=== PATIENT | male | born 1930 | race Caucasian/White ===

== ENCOUNTER 2016-07-01 15:51 | Inpatient (IN) | payer MEDICARE, BC ==
[2016-07-01] VITALS (11 sets, daily range): BP systolic 110–141; BP diastolic 52–66; PULSE 75–88; RESP 16–17; TEMP 98.6; O2SAT 95–97
[~2016-07-01] VITALS: Ht 177.8 cm; Wt 91.1 kg
[~2016-07-01 15:51] MED LIST: ECASA PO; FINA5TAB77 PO; LASI20TA PO; LEXA10TA PO; LISI-357 PO; LORA2TAB PO; OMPR20CCR PO; PAXI20TA26 PO; PLAV75TA PO; POTA-243 PO; SIMV40 PO; TAMS0.4C67 PO; ULTR50TA PO; VITA-83 PO
[2016-07-01] MEDS ORDERED: SODIUM CHLOR 0.9% 1000 ML INJ 1,000 ML IV SCH (16:01)
[2016-07-01] MEDS ORDERED: LEXA10TA PO (16:05)
[2016-07-01] MEDS ORDERED: PARO1TAB72 PO (16:05)
[2016-07-01] MEDS ORDERED: ASPI325T PO (16:05)
[2016-07-01] MEDS ORDERED: FURO1TAB62 PO (16:05)
[2016-07-01] MEDS ORDERED: ASCO500C PO (16:05)
[2016-07-01] MEDS ORDERED: TRAM50TA PO (16:05)
[2016-07-01] MEDS ORDERED: LISI-519 PO (16:05)
[2016-07-01] MEDS ORDERED: POTA-243 PO (16:05)
[2016-07-01] MEDS ORDERED: FINA5TAB2 PO (16:05)
[2016-07-01] MEDS ORDERED: PLAV75TA29 PO (16:05)
[2016-07-01] MEDS ORDERED: LORA2TAB7 PO (16:05)
[2016-07-01] MEDS ORDERED: PRIL20CA9 PO (16:05)
[2016-07-01] MEDS ORDERED: TAMS5CAP PO (16:05)
[2016-07-01] MEDS ORDERED: SIMV40TA PO (16:05)
[2016-07-01] MEDS ORDERED: SODIUM CHLORIDE 0.9% FLUSH 5 ML FLUSH IVF PRN (16:15)
[2016-07-01] MEDS ORDERED: PANTOPRAZOLE INJ 80 MG in SODIUM CHLORIDE 0.9% INJ 35 ML IV ONE (16:15)
[2016-07-01 16:30] LABS: AUTOMATED NEUTROPHIL # 8.8 TH/MM3 (1.8-7.7); BASOPHIL % 0.1 % (0.0-2.0); EOSINOPHIL # 0.1 TH/MM3 (0-0.4); EOSINOPHIL % 0.8 % (0.0-4.0); HEMATOCRIT 29.4 % (39.0-51.0); LYMPH % 7.1 % (9.0-44.0); LYMPHOCYTE # 0.8 TH/MM3 (1.0-4.8); MEAN CELL VOLUME 79.8 FL (80.0-100.0); MEAN CORPUSCULAR HEMOGLOBIN 26.4 PG (27.0-34.0); MEAN CORPUSCULAR HGB CONC 33.1 % (32.0-36.0); PLATELET COUNT 293 TH/MM3 (150-450); RED BLOOD COUNT 3.68 MIL/MM3 (4.50-5.90); RED CELL DISTRIBUTION WIDTH 18.4 % (11.6-17.2); WHITE BLOOD COUNT 10.7 TH/MM3 (4.0-11.0)
[2016-07-01 16:32] LABS: HEMO FLAGS AUTO DIFF
[2016-07-01] MEDS: PANTOPRAZOLE INJ 80 MG in SODIUM CHLORIDE 0.9% INJ 100 ML IV SCH (16:43)
[2016-07-01 16:57] LABS: ANION GAP 7 MEQ/L (5-15); AST (GOT) 13 U/L (15-37); BICARBONATE 24.2 MEQ/L (21.0-32.0); BLOOD UREA NITROGEN 30 MG/DL (7-18); CHLORIDE 111 MEQ/L (98-107); GLOMERULAR FILTRATION RATE 68 ML/MIN (>89); POTASSIUM 4.3 MEQ/L (3.5-5.1); SODIUM (NA) 142 MEQ/L (136-145)
[2016-07-01 17:01] LABS: ALKALINE PHOSPHATASE 54 U/L (45-117); ALT (GPT) 13 U/L (12-78); TOTAL BILIRUBIN ADULT 0.5 MG/DL (0.2-1.0)
[2016-07-01 17:07] LABS: INTERNATIONAL NORMALIZED RATIO 1.1 RATIO; PROTHROMBIN TIME - PATIENT 12.5 SEC (9.8-11.6)
[2016-07-01 17:19] LABS: BANDS 12 % (0-6); NEUTROPHIL # MANUAL DIFF 8.3 TH/MM3 (1.8-7.7); POLYS (SEG NEUTROPHILS) 66 % (16-70); WBC DIFF SAMPLE 100
[2016-07-01 17:20] LABS: CRENATED RBCS 1+ (NORMAL); PLATELET ESTIMATE SMEAR NORMAL (NORMAL); PLATELET MORPHOLOGY NORMAL (NORMAL); SCAN/DIFF FINAL DIFF MANUAL
--- NOTE | 2016-07-01 17:37 | PD ---
HPI Chief Complaint: GI Complaint Time Seen by Provider: 15:59 Travel History International Travel<30 days: No Contact w/Intl Traveler<30days: No Traveled to known affect area: No History of Present Illness HPI Patient is a 86 year old male who comes in after having a bloody bowel movement today. He says he went to the bathroom and noticed all blood in the toilet. Afterwards he felt very weak as if he might pass out, so his called . He continued to bleed on the way to the hospital. Per EMS, he had a blood pressure of 80/40, but this improved with IVF. Patient was taking Aspirin and Plavix, but reports recently being taken off of these. He says this has never happened before. He denies any abdominal pain. He denies chest pain or SOB. Currently he is feeling better and does not feel dizzy. PFSH Past Medical History Hx Anticoagulant Therapy: Yes (81 MG. ASA DAILY) Anxiety: Yes Depression: Yes Heart Rhythm Problems: Yes Cancer: No Cardiac Catheterization: Yes Cardiovascular Problems: Yes (SD, CAD, CABG, SSS, HYPERLIPIDEMIA, HEART BLOCK) High Cholesterol: Yes Chest Pain: Yes Congestive Heart Failure: Yes Cerebrovascular Accident: Yes (TIA X2) Coronary Artery Disease: Yes Diabetes: No Diminished Hearing: No Endocrine: No Gastrointestinal Disorders: No Glaucoma: No Genitourinary: Yes Hepatitis: No Hiatal Hernia: No Hypertension: Yes Immune Disorder: No Implanted Vascular Access Dvce: Yes (PACEMAKER) Kidney Stones: Yes Musculoskeletal: Yes (CARPAL TUNNEL) Neurologic: Yes Psychiatric: Yes Reproductive: No Respiratory: No Integumentary: Yes (GANGLION L WRIST) Seizures: Yes Thyroid Disease: No Tetanus Vaccination: < 5 Years Influenza Vaccination: Yes ?: Not Past Surgical History Abdominal Surgery: Yes AICD: No Appendectomy: Yes Arteriovenous Shunt: No Cardiac Surgery: Yes (PACEMAKER, QUADRUPAL BYPASS) Coronary Artery Bypass Graft: Yes (X 4) Ear Surgery: No Endocrine Surgery: No Eye Surgery: Yes (ERLIN. CATARACT EXTRACT.) Genitourinary Surgery: Yes Insulin Pump: No Joint Replacement: No Neurologic Surgery: Yes Oral Surgery: No Pacemaker: Yes (BIOTRONIK) Thoracic Surgery: No Other Surgery: Yes (hemriodectomy and ganglion cyst removal) Social History Alcohol Use: Yes (OCCASIONALLY) Tobacco Use: No Substance Use: No Allergies-Medications (Allergen,Severity, Reaction): Coded Allergies: Advil (Verified Allergy, Severe, 07/01/16) Tramadol (Verified Adverse Reaction, Severe, Seizures, 07/01/16) Reported Meds & Prescriptions Reported Meds & Active Scripts Active Reported Plavix (Clopidogrel Bisulfate) 75 Mg Tab Unknown Dose PO DAILY Paroxetine (Paroxetine HCl) 20 Mg Tab 20 Mg PO DAILY Flomax (Tamsulosin HCl) 0.4 Mg Cap 0.4 Mg PO HS Tramadol (Tramadol HCl) 50 Mg Tab 50 Mg PO DAILY PRN Lisinopril 5 Mg Tab 5 Mg PO DAILY Lexapro (Escitalopram Oxalate) 10 Mg Tab 10 Mg PO DAILY Aspirin 325 Mg Tab 325 Mg PO DAILY Lorazepam 2 Mg Tab 2 Mg PO HS PRN Simvastatin 40 Mg Tab 40 Mg PO HS Vitamin C (Ascorbic Acid) 500 Mg Cap 500 Mg PO BID Finasteride 5 Mg Tab 5 Mg PO DAILY Do not crush. Klor-Con 10 (Potassium Chloride) 10 Meq Tab 20 Meq PO DAILY Lasix (Furosemide) 20 Mg Tab 0.5 Tab PO DAILY Prilosec (Omeprazole) 20 Mg Cap 20 Mg PO DAILY Review of Systems Except as stated in HPI: all other systems reviewed are Neg General / Constitutional: No: Fever, Chills Eyes: No: Blurred Vision HENT: No: Headaches Cardiovascular: No: Chest Pain or Discomfort Respiratory: No: Shortness of Breath Gastrointestinal: Positive: Hematochezia, No: Nausea, Vomiting Genitourinary: No: Dysuria Musculoskeletal: No: Myalgias Skin: No Rash, No Change in Pigmentation Physical Exam Narrative GENERAL: Awake and alert, in no acute distress. SKIN: Warm and dry. Pale appearing. HEAD: Atraumatic. Normocephalic. EYES: Pupils equal and round. No scleral icterus. Conjunctival pallor. ENT: Mucous membranes pink and moist. NECK: Trachea midline. No JVD. CARDIOVASCULAR: Regular rate and rhythm. No murmur appreciated. RESPIRATORY: No accessory muscle use. Clear to auscultation. Breath sounds equal bilaterally. GASTROINTESTINAL: Abdomen soft, non-tender, nondistended. RECTAL: BRBPR MUSCULOSKELETAL: No obvious deformities. No clubbing. No cyanosis. No edema. NEUROLOGICAL: Awake and alert. No obvious cranial nerve deficits. Motor grossly within normal limits. Normal speech. PSYCHIATRIC: Appropriate mood and affect; insight and judgment normal. Data Data Last Documented VS Vital Signs Date Time Temp Pulse Resp B/P Pulse Ox O2 Delivery O2 Flow Rate FiO2 07/01/16 17:30 86 16 140/63 96 Room Air 07/01/16 15:53 98.6 Orders Complete Blood Count With Diff (07/01/16 16:01) Comprehensive Metabolic Panel (07/01/16 16:01) Lipase (07/01/16 16:01) Prothrombin Time / Inr (Pt) (07/01/16 16:01) Act Partial Throm Time (Ptt) (07/01/16 16:01) Type And Screen (07/01/16 16:01) Red Blood Cells (Rbc) (07/01/16 16:01) Ecg Monitoring (07/01/16 16:01) Iv Access Insert/Monitor (07/01/16 16:01) Oximetry (07/01/16 16:01) Sodium Chlor 0.9% 1000 Ml Inj (Ns 1000 M (07/01/16 16:01) Sodium Chloride 0.9% Flush (Ns Flush) (07/01/16 16:15) Pantoprazole Inj (Protonix Inj) (07/01/16 16:15) Pantoprazole Inj (Protonix Inj) (07/01/16 16:15) Ct Abd/Pel W Iv Contrast(Rout) (07/01/16 ) Admit Order (Ed Use Only) (07/01/16 ) Labs Laboratory Tests Test 07/01/16 16:16 White Blood Count 10.7 TH/MM3 Red Blood Count 3.68 MIL/MM3 Hemoglobin 9.7 GM/DL Hematocrit 29.4 % Mean Corpuscular Volume 79.8 FL Mean Corpuscular Hemoglobin 26.4 PG Mean Corpuscular Hemoglobin 33.1 % Concent Red Cell Distribution Width 18.4 % Platelet Count 293 TH/MM3 Mean Platelet Volume 8.4 FL Neutrophils (%) (Auto) 82.0 % Lymphocytes (%) (Auto) 7.1 % Monocytes (%) (Auto) 10.0 % Eosinophils (%) (Auto) 0.8 % Basophils (%) (Auto) 0.1 % Neutrophils # (Auto) 8.8 TH/MM3 Lymphocytes # (Auto) 0.8 TH/MM3 Monocytes # (Auto) 1.1 TH/MM3 Eosinophils # (Auto) 0.1 TH/MM3 Basophils # (Auto) 0.0 TH/MM3 CBC Comment AUTO DIFF Differential Total Cells 100 Counted Neutrophils % (Manual) 66 % Band Neutrophils % 12 % Lymphocytes % 9 % Monocytes % 13 % Neutrophils # (Manual) 8.3 TH/MM3 Differential Comment FINAL DIFF MANUAL Platelet Estimate NORMAL Platelet Morphology Comment NORMAL Crenated Cell 1+ Prothrombin Time 12.5 SEC Prothromb Time International 1.1 RATIO Ratio Activated Partial 32.0 SEC Thromboplast Time Sodium Level 142 MEQ/L Potassium Level 4.3 MEQ/L Chloride Level 111 MEQ/L Carbon Dioxide Level 24.2 MEQ/L Anion Gap 7 MEQ/L Blood Urea Nitrogen 30 MG/DL Creatinine 1.04 MG/DL Estimat Glomerular Filtration 68 ML/MIN Rate Random Glucose 120 MG/DL Calcium Level 7.5 MG/DL Total Bilirubin 0.5 MG/DL Aspartate Amino Transf 13 U/L (AST/SGOT) Alanine Aminotransferase 13 U/L (ALT/SGPT) Alkaline Phosphatase 54 U/L Total Protein 5.7 GM/DL Albumin 2.6 GM/DL Lipase 78 U/L Blood Type A POSITIVE Antibody Screen NEGATIVE Crossmatch Leukocyte-Reduced Red Blood Cells Blood Bank Comment MDM Medical Decision Making Medical Screen Exam Complete: Yes Emergency Medical Condition: Yes Medical Record Reviewed: Yes Differential Diagnosis Diverticulosis versus AVM versus ulcer Narrative Course Patient is an 86-year-old male comes in after having a bloody bowel movement. Exam shows some conjunctival pallor. IV established, labs sent. Patient given IV fluids. Blood ordered in case he continues to bleed and requires a transfusion. Started on Protonix. Hemoglobin currently is 9.7. Blood held. Patient had no further bleeding in the emergency department. Dr. Ordaz consulted for GI. He says he will scope the patient tomorrow. Patient admitted for further management. Diagnosis Primary Impression: Lower gastrointestinal bleed Admitting Information Admitting Physician Requests: Admit Shaista Ko MD Jul 01, 2016 17:37
[2016-07-01] MEDS ORDERED: IOHEXOL 350 MG/ML 10 ML VIAL (for RAD DIAG) IV ONE (17:52)
--- NOTE | 2016-07-01 18:03 | RADRPT ---
EXAM DATE/TIME: 07/01/2016 17:36 [facility] COMPARISON: No previous studies available for comparison. INDICATIONS : Abdomen pain, rectal bleeding. IV CONTRAST: 99 cc Omnipaque 350 (iohexol) IV ORAL CONTRAST: No oral contrast ingested. RADIATION DOSE: 12.22 CTDIvol (mGy) MEDICAL HISTORY : Cardiovascular disease. Renal calculi. SURGICAL HISTORY : CABG Pacemaker. ENCOUNTER: Initial ACUITY: 1 day PAIN SCALE: 5/10 LOCATION: Abdomen TECHNIQUE: Volumetric scanning of the abdomen and pelvis was performed. Using automated exposure control and ad justment of the mA and/or kV according to patient size, radiation dose was kept as low as reasonably achievable to obtain optimal diagnostic quality images. FINDINGS: LOWER LUNGS: The visualized lower lungs are clear. LIVER: Homogeneous density without lesion. There is no dilation of the biliary tree. No calcified gallston es. SPLEEN: Normal size without lesion. PANCREAS: Within normal limits. KIDNEYS: Normal in size and shape. There is no mass, stone or hydronephrosis. ADRENAL GLANDS: Within normal limits. VASCULAR: There is no aortic aneurysm. Extensive atherosclerotic changes. BOWEL/MESENTERY: Scattered diverticulosis. There is no free intraperitoneal air or fluid. Christine mesentery with small l ymph nodes. ABDOMINAL WALL: Within normal limits. RETROPERITONEUM: There is no lymphadenopathy. BLADDER: No wall thickening or mass. REPRODUCTIVE: Within normal limits. INGUINAL: There is no lymphadenopathy or hernia. MUSCULOSKELETAL: Degenerative changes lumbar spine. CONCLUSION: 1. Diverticulosis without diverticulitis. Ar Vizcaino MD on July 01, 2016 at 18:00 Board Certified Radiologist. This report was verified electronically.
--- NOTE | 2016-07-01 18:10 | HHI.HP ---
[facility] Service Family Medicine Primary Care Physician Philly (Jaime) MD Jose Admission Diagnosis GI bleed Diagnoses: International Travel<30 Days: No Contact w/Intl Traveler<30days: No Known Affected Area: No History of Present Illness 86-year-old male with history of bright red bleeding per rectum since this morning. Patient is present with his . He states for the past 2-3 days he has had "explosive diarrhea." He is not sure how many times he has gone to the bathroom in the last 2-3 days. The bright red bleeding first occurred this morning. He "passed a lot of blood which created a puddle on the floor." He called his primary care physician Dr. Garcia who recommended he come to the emergency room with any more episodes of bleeding. Shortly after, he fainted and there was "a gush of blood"per rectum. That is when his called 911. Patient was interviewed with prevention coordinator in the room. CT exam showed diverticulosis. His last colonoscopy was 10 years ago. He took his medications this morning including Plavix and aspirin which he takes for coronary artery disease. (Lavon Brennan MD R2) Review of Systems Constitutional: DENIES: Fever, Chills Eyes: DENIES: Blurred vision, Diplopia Respiratory: DENIES: Cough, Shortness of breath Cardiovascular: COMPLAINS OF: Syncope, DENIES: Chest pain, Palpitations Gastrointestinal: COMPLAINS OF: Bloody stools, Diarrhea, DENIES: Abdominal pain, Black stools, Constipation, Nausea, Vomiting Neurologic: DENIES: Abnormal gait, Headache Psychiatric: DENIES: Anxiety, Confusion (Lavon Brennan MD R2) Past Family Social History Past Medical History Coronary artery disease status post CABG 2010 Hypertension Anxiety depression Hyperlipidemia BPH Past Surgical History CABG 2010 Reported Medications Reported Meds & Active Scripts Active Reported Plavix (Clopidogrel Bisulfate) 75 Mg Tab Unknown Dose PO DAILY Paroxetine (Paroxetine HCl) 20 Mg Tab 20 Mg PO DAILY Flomax (Tamsulosin HCl) 0.4 Mg Cap 0.4 Mg PO HS Tramadol (Tramadol HCl) 50 Mg Tab 50 Mg PO DAILY PRN Lisinopril 5 Mg Tab 5 Mg PO DAILY Lexapro (Escitalopram Oxalate) 10 Mg Tab 10 Mg PO DAILY Aspirin 325 Mg Tab 325 Mg PO DAILY Lorazepam 2 Mg Tab 2 Mg PO HS PRN Simvastatin 40 Mg Tab 40 Mg PO HS Vitamin C (Ascorbic Acid) 500 Mg Cap 500 Mg PO BID Finasteride 5 Mg Tab 5 Mg PO DAILY Do not crush. Klor-Con 10 (Potassium Chloride) 10 Meq Tab 20 Meq PO DAILY Lasix (Furosemide) 20 Mg Tab 0.5 Tab PO DAILY (he's not sure why he takes this) Prilosec (Omeprazole) 20 Mg Cap 20 Mg PO DAILY (Lavon Brennan MD R2) Allergies: Coded Allergies: Advil (Verified Allergy, Severe, 07/01/16) Tramadol (Verified Adverse Reaction, Severe, Seizures, 07/01/16) Active Ordered Medications Active Medications Iohexol (Omnipaque 350 Inj) 99 ml STK-MED ONCE IV Last administered on 17:52; Admin Dose 99 ML; Start 07/01/16 at 17:52; Stop 07/01/16 at 17:53; Status DC IV Flush 2 ml 2 ml UNSCH PRN IVF; Start 07/01/16 at 16:15 Pantoprazole Sodium 80 mg/ Sodium Chloride 35 ml @ 420 mls/hr ONCE ONCE IV Last administered on 07/01/16 16:43; Admin Dose 420 MLS/HR; Start 07/01/16 at 16:15; Stop 07/01/16 at 16:19; Status DC Pantoprazole Sodium/Sodium Chloride (Protonix Inj/NS Inj) 100 ml @ 10 mls/hr Q10H IV Last administered on 07/01/16 16:43; Admin Dose 10 MLS/HR; Start at 16:15 Sodium Chloride (NS 1000 ml Inj) 1,000 ml @ 1,000 mls/hr Q1H IV Last administered on 07/01/16 16:28; Admin Dose 1,000 MLS/HR; Start 07/01/16 at 16: 01; Stop 07/01/16 at 17:00; Status DC Family History No history of cancer. No history of DM Social History Patient denies using tobacco, alcohol or illicit drugs. He quit smoking about 44 years ago; 1 PPD from [age] years old (Lavon Brennan MD R2) Physical Exam Vital Signs Vital Signs Date Time Temp Pulse Resp B/P Pulse Ox O2 Delivery O2 Flow Rate FiO2 07/01/16 18:07 88 16 140/64 97 Room Air 07/01/16 17:30 86 16 140/63 96 Room Air 07/01/16 17:00 88 17 110/54 96 Room Air 07/01/16 16:40 96 Room Air 07/01/16 16:30 84 16 118/59 96 Room Air 07/01/16 16:00 80 16 112/57 96 Room Air 07/01/16 15:59 16 07/01/16 15:53 98.6 86 17 110/52 96 Physical Exam GENERAL: This is a well-nourished, well-developed patient, in no apparent distress. SKIN: No rashes, ecchymoses or lesions. Cool and dry. Pale appearing HEAD: Atraumatic. Normocephalic. No temporal or scalp tenderness. EYES: Pupils equal round and reactive. Extraocular motions intact. No scleral icterus. No injection or drainage. ENT: Nose without bleeding, purulent drainage or septal hematoma. Throat without erythema, tonsillar hypertrophy or exudate. Uvula midline. Airway patent. NECK: Trachea midline. No JVD or lymphadenopathy. Supple, nontender, no meningeal signs. CARDIOVASCULAR: Regular rate and rhythm without murmurs, gallops, or rubs. RESPIRATORY: Clear to auscultation. Breath sounds equal bilaterally. No wheezes , rales, or rhonchi. GASTROINTESTINAL: Abdomen soft, non-tender, nondistended. No hepato-splenomegaly , or palpable masses. No guarding. One episode of Bright red bleeding observed per rectum while in the patient's room. MUSCULOSKELETAL: Extremities without clubbing, cyanosis, or edema. No joint tenderness, effusion, or edema noted. No calf tenderness. Negative Homans sign bilaterally. NEUROLOGICAL: Awake and alert. Cranial nerves II through XII intact. Motor and sensory grossly within normal limits. Five out of 5 muscle strength in all muscle groups. Normal speech. Laboratory Laboratory Tests Test 07/01/16 16:16 White Blood Count 10.7 Red Blood Count 3.68 Hemoglobin 9.7 Hematocrit 29.4 Mean Corpuscular Volume 79.8 Mean Corpuscular Hemoglobin 26.4 Mean Corpuscular Hemoglobin 33.1 Concent Red Cell Distribution Width 18.4 Platelet Count 293 Mean Platelet Volume 8.4 Neutrophils (%) (Auto) 82.0 Lymphocytes (%) (Auto) 7.1 Monocytes (%) (Auto) 10.0 Eosinophils (%) (Auto) 0.8 Basophils (%) (Auto) 0.1 Neutrophils # (Auto) 8.8 Lymphocytes # (Auto) 0.8 Monocytes # (Auto) 1.1 Eosinophils # (Auto) 0.1 Basophils # (Auto) 0.0 CBC Comment AUTO DIFF Differential Total Cells 100 Counted Neutrophils % (Manual) 66 Band Neutrophils % 12 Lymphocytes % 9 Monocytes % 13 Neutrophils # (Manual) 8.3 Differential Comment FINAL DIFF MANUAL Platelet Estimate NORMAL Platelet Morphology Comment NORMAL Crenated Cell 1+ Prothrombin Time 12.5 Prothromb Time International 1.1 Ratio Activated Partial 32.0 Thromboplast Time Sodium Level 142 Potassium Level 4.3 Chloride Level 111 Carbon Dioxide Level 24.2 Anion Gap 7 Blood Urea Nitrogen 30 Creatinine 1.04 Estimat Glomerular Filtration 68 Rate Random Glucose 120 Calcium Level 7.5 Total Bilirubin 0.5 Aspartate Amino Transf 13 (AST/SGOT) Alanine Aminotransferase 13 (ALT/SGPT) Alkaline Phosphatase 54 Total Protein 5.7 Albumin 2.6 Lipase 78 Blood Type A POSITIVE Antibody Screen NEGATIVE Crossmatch Leukocyte-Reduced Red Blood Cells Blood Bank Comment (Lavon Brennan MD R2) Result Diagram: 07/01/16 1616 07/01/16 1616 Imaging Last Impressions Abdomen/Pelvis CT 07/01/16 0000 Signed Impressions: Service Date/Time: Friday, July 01, 2016 17:36 - CONCLUSION: 1. Diverticulosis without diverticulitis. Ar Vizcaino MD (Lavon Brennan MD R2) Assessment and Plan Assessment and Plan 86-year-old male with bright red blood per rectum. Patient will be admitted for gastroenterology consultation including colonoscopy/EGD. Code Status Full (Lavon Brennan MD R2) Attending Attestation The patient has been seen and examined. The chart and all resident notes have been reviewed. I agree that inpatient care is appropriate and that a two midnight stay is expected for the reasons documented in the resident history and physical. I have discussed this with the resident and certify the resident s order for inpatient admission. All systems reviewed and neg except as stated in HPI. (Carmen Gant MD) Problem List: (1) Lower gastrointestinal bleed Status: Acute Plan: Bright red blood per rectum. Vitals currently stable. Diverticulosis on CT scan. Gastroenterology consult Nothing by mouth at midnight for planned colonoscopy/EGD Serial hemoglobin and hematocrits every 6 hours Transfuse if hemoglobin less than 7 and/or active bleeding. Protonix drip Normal saline 140 mL's per hour nuclear medical technologist (2) FEN/PPX Status: Acute Plan: Fluids: Normal saline at 140 mL's per hour Electrolytes: Monitor and replace when necessary Nutrition: Currently liquid diet, nothing by mouth after midnight for colonoscopy and/or EGD Prophylaxis: Protonix IV; no anticoagulation given GI bleed. Chronic medical problems: Coronary artery disease: Holding aspirin and Plavix secondary to GI bleed; continue Lasix 20 mg by mouth daily Depression: Continue Lexapro and paroxetine High blood pressure: Continue lisinopril Anxiety: Continue lorazepam 2 mg by mouth at bedtime when necessary anxiety and/ or insomnia BPH: Continue Flomax and finasteride Chronic pain: Continue tramadol (Lavon Brennan MD R2) Physician Certification 2 Midnight Certification Type: Admission for Inpatient Services Order for Inpatient Services The services are ordered in accordance with Medicare regulations or non- Medicare payer requirements, as applicable. In the case of services not specified as inpatient-only, they are appropriately provided as inpatient services in accordance with the 2-midnight benchmark. Estimated LOS (days): 2 days is the estimated time the patient will need to remain in the hospital, assuming treatment plan goals are met and no additional complications. Post-Hospital Plan: Not yet determined (Lavon Brennan MD R2) Lavon Brennan MD R2 Jul 01, 2016 18:10 Carmen Gant MD Jul 02, 2016 14:37
[2016-07-01] MEDS ORDERED: PEG (High)/E-LYTE SOLN 4000 ML BTL PO ONE (18:30)
[2016-07-01] MEDS ORDERED: ONDANSETRON HCL 4 MG/2 ML VIAL IV PRN (18:45)
[2016-07-01] MEDS ORDERED: ACETAMINOPHEN 325 MG TAB PO PRN (18:45)
[2016-07-01] MEDS ORDERED: LORazepam 2 MG TAB PO PRN (19:00)
[2016-07-01] MEDS ORDERED: traMADol HCL 50 MG TAB PO PRN (19:00)
[2016-07-01] MEDS: SODIUM CHLOR 0.9% 1000 ML INJ 1,000 ML IV SCH ×2 (19:01→23:59)
[2016-07-01] MEDS: TAMSULOSIN HCL 0.4 MG CAP PO SCH (20:39)
[2016-07-01] MEDS: PRAVASTATIN SOD 80 MG TAB PO SCH (20:39)
--- NOTE | 2016-07-01 20:40 | EKG ---
Date Performed: 07/01/2016 Time Performed: 15:56:46 PTAGE: 86 years EKG: ELECTRONIC ATRIAL PACEMAKER ELECTRONIC VENTRICULAR PACEMAKER ABNORMAL RHYTHM ECG PREVIOUS TRACING : 01/18/2016 11.09 Compared to previous tracing, atrial pacing is now evident. DOCTOR: Amarjit Adan Interpretating Date/Time 07/01/2016 20:40:00
[2016-07-01] MEDS ORDERED: CHLORHEXIDINE GLUCONATE 2 % 1 PACK (2 CLOTHS)(extra cloths) TOP PRN (23:30)
[2016-07-02] VITALS (13 sets, daily range): BP systolic 130–163; BP diastolic 59–74; PULSE 81–88; RESP 10–20; TEMP 97.7–98.7; O2SAT 91–96
[2016-07-02] MEDS: CHLORHEXIDINE GLUCONATE 2 % 1 PACK (2 CLOTHS)(taper/protocol) TOP SCH
[2016-07-02 01:18] LABS: HEMATOCRIT 26.6 % (39.0-51.0); REVIEW FLAG FINAL
[2016-07-02] MEDS: SODIUM CHLOR 0.9% 1000 ML INJ 1,000 ML IV SCH ×3 (05:26→22:40)
[2016-07-02 07:43] LABS: AUTOMATED NEUTROPHIL # 8.9 TH/MM3 (1.8-7.7); BASOPHIL % 0.2 % (0.0-2.0); EOSINOPHIL # 0.1 TH/MM3 (0-0.4); HEMO FLAGS DIFF FINAL; LYMPH % 10.2 % (9.0-44.0); LYMPHOCYTE # 1.1 TH/MM3 (1.0-4.8); MEAN CELL VOLUME 81.3 FL (80.0-100.0); MEAN CORPUSCULAR HEMOGLOBIN 25.7 PG (27.0-34.0); MEAN CORPUSCULAR HGB CONC 31.6 % (32.0-36.0); MONO % 8.1 % (0.0-8.0); NEUT % 80.5 % (16.0-70.0); PLATELET COUNT 280 TH/MM3 (150-450); RED BLOOD COUNT 3.32 MIL/MM3 (4.50-5.90); RED CELL DISTRIBUTION WIDTH 18.8 % (11.6-17.2)
[2016-07-02 08:00] LABS: ALT (GPT) 11 U/L (12-78); ANION GAP 10 MEQ/L (5-15); AST (GOT) 10 U/L (15-37); BICARBONATE 20.3 MEQ/L (21.0-32.0); BLOOD UREA NITROGEN 22 MG/DL (7-18); CHLORIDE 114 MEQ/L (98-107); GLOMERULAR FILTRATION RATE 89 ML/MIN (>89); POTASSIUM 3.9 MEQ/L (3.5-5.1); SODIUM (NA) 144 MEQ/L (136-145)
[2016-07-02 08:03] LABS: ALKALINE PHOSPHATASE 52 U/L (45-117); TOTAL BILIRUBIN ADULT 0.4 MG/DL (0.2-1.0)
[2016-07-02] MEDS: LISINOPRIL 5 MG TAB PO SCH (08:20)
[2016-07-02] MEDS: PARoxetine HCL 20 MG TAB PO SCH (08:20)
[2016-07-02] MEDS: ESCITALOPRAM OXALATE 10 MG TAB PO SCH (08:20)
[2016-07-02] MEDS: FINASTERIDE 5 MG TAB PO SCH (08:20)
[2016-07-02] MEDS: POTASSIUM CHLORIDE 10 MEQ CONTROLLED RELEASE TAB PO SCH (08:20)
[2016-07-02] MEDS: FUROSEMIDE 20 MG TAB PO SCH ×2 (08:21→08:22)
[2016-07-02] MEDS: PANTOPRAZOLE INJ 80 MG in SODIUM CHLORIDE 0.9% INJ 100 ML IV SCH ×3 (10:28)
[2016-07-02 11:46] LABS: HEMATOCRIT 26.6 % (39.0-51.0); REVIEW FLAG FINAL
[2016-07-02] MEDS ORDERED: NS 500 ML (EXCEL BAG) 500 ML BAG IV ONE (12:19)
[2016-07-02] MEDS ORDERED: PROPOFOL 200 MG/20 ML AMP IV ONE (12:19)
[2016-07-02] MEDS ORDERED: DO NOT ADM ANY ANTICOAGULANT DRUGS XX PRN (12:36)
--- NOTE | 2016-07-02 14:23 | MB ---
cc: VILMA LEUNG DATE OF CONSULTATION: 07/02/2016. REASON FOR CONSULTATION: GI bleed. HISTORY OF PRESENT ILLNESS: Thank you for the consultation. This is an 86-year-old gentleman who came with bright red blood per rectum in the last 24 hours. He presented with his and stated that for the last two to three days he has had explosive diarrhea and bright red blood started in the morning. The patient denied any other problem. His primary care doctor, Dr. Garcia, recommended for him to come to the emergency room. CT scan showed diverticulosis. The patient had colonoscopy before but more than 10 years ago. He denies any other problem. He is on Plavix and aspirin. PAST MEDICAL HISTORY: Significant for: 1. Anxiety. 2. Depression. 3. Hypertension. 4. Coronary artery disease status post CABG. 5. Benign prostate hypertrophy. 6. Hyperlipidemia. MEDICATIONS: Reviewed in the chart. FAMILY HISTORY: Noncontributory. ALLERGIES: 1. ADVIL. 2. TRAMADOL. REVIEW OF SYSTEMS: All twelve-point negative except for the history of present illness. PHYSICAL EXAMINATION: GENERAL: Alert, oriented, in no acute distress. VITAL SIGNS: Vital signs are stable. HEAD, EYES, EARS, NOSE, THROAT: Pupils are round and reactive to light. NECK: The neck is supple. CHEST: Clear. CARDIAC: Regular rate and rhythm. ABDOMEN: Soft, nondistended. Positive bowel sounds. No hepatosplenomegaly. EXTREMITIES: No edema, clubbing or cyanosis. NEUROLOGIC: Neurologically intact. PSYCHIATRIC: Psychologically appropriate. LABORATORY DATA: White count 10.7, hemoglobin 8.6 down from 9.7 on admission, platelets 280,000. INR 1.1. Liver function tests are normal. Lipase normal. IMAGING STUDIES: Abdominal CT scan showed diverticulosis. No diverticulitis. ASSESSMENT AND PLAN: 86-year-old gentleman with rectal bleed and bright red blood per rectum. No melena but because of the sudden onset and the significant anemia, I recommend doing upper endoscopy and a colonoscopy. I had discussed with the patient the procedure and complications. This will be done today. The patient was prepped yesterday. Further plan depends on the findings. We will continue with packed RBC as needed. MD RUDOLPH Monique/VINICIO /1:38 PM /2:17 PM
--- NOTE | 2016-07-02 14:56 | HHI.FPPN ---
Subjective Subjective Patient seen and examined with the resident team. Case reviewed and discussed Please refer to resident H&P for further details regarding HPI, ROS, PMH, SurgHx , FH and SocHx In summary, patient is an 86yoM presenting for rectal bleeding. He reportedly noted BRBPR and had a syncopal episode at home prompting him to come in. Patient is seen this am in [facility]. Denies abdominal pain. Plan for colonoscopy today. [facility] Objective Objective Last Impressions Abdomen/Pelvis CT 07/01/16 0000 Signed Impressions: Service Date/Time: Friday, July 01, 2016 17:36 - CONCLUSION: 1. Diverticulosis without diverticulitis. Ar Vizcaino MD Laboratory Tests - Abnormals Test 07/01/16 07/02/16 07/02/16 07/02/16 16:16 00:55 05:45 10:54 Red Blood Count 3.68 MIL/MM3 3.32 MIL/MM3 Hemoglobin 9.7 GM/DL 8.7 GM/DL 8.5 GM/DL 8.6 GM/DL Hematocrit 29.4 % 26.6 % 27.0 % 26.6 % Mean Corpuscular Volume 79.8 FL Mean Corpuscular Hemoglobin 26.4 PG 25.7 PG Red Cell Distribution Width 18.4 % 18.8 % Neutrophils (%) (Auto) 82.0 % 80.5 % Lymphocytes (%) (Auto) 7.1 % Monocytes (%) (Auto) 10.0 % 8.1 % Neutrophils # (Auto) 8.8 TH/MM3 8.9 TH/MM3 Lymphocytes # (Auto) 0.8 TH/MM3 Monocytes # (Auto) 1.1 TH/MM3 Band Neutrophils % 12 % Monocytes % 13 % Neutrophils # (Manual) 8.3 TH/MM3 Crenated Cell 1+ Prothrombin Time 12.5 SEC Activated Partial 32.0 SEC Thromboplast Time Chloride Level 111 MEQ/L 114 MEQ/L Blood Urea Nitrogen 30 MG/DL 22 MG/DL Estimat Glomerular Filtration 68 ML/MIN Rate Random Glucose 120 MG/DL Calcium Level 7.5 MG/DL 7.7 MG/DL Aspartate Amino Transf 13 U/L 10 U/L (AST/SGOT) Total Protein 5.7 GM/DL 5.3 GM/DL Albumin 2.6 GM/DL 2.3 GM/DL Mean Corpuscular Hemoglobin 31.6 % Concent Carbon Dioxide Level 20.3 MEQ/L Alanine Aminotransferase 11 U/L (ALT/SGPT) Vital Signs 07/01/16 07/01/16 07/01/16 07/01/16 15:53 15:59 16:00 16:30 Temp 98.6 Pulse 86 80 84 Resp 17 16 16 16 B/P 110/52 112/57 118/59 Pulse Ox 96 96 96 O2 Delivery Room Air Room Air 07/01/16 07/01/16 07/01/16 07/01/16 16:40 17:00 17:30 18:07 Pulse 88 86 88 Resp 17 16 16 B/P 110/54 140/63 140/64 Pulse Ox 96 96 96 97 O2 Delivery Room Air Room Air Room Air Room Air 07/01/16 07/01/16 07/01/16 07/01/16 19:02 20:00 20:44 21:50 Pulse 86 81 88 75 Resp 16 17 16 B/P 128/58 141/66 135/63 141/66 Pulse Ox 95 96 96 96 O2 Delivery Room Air Room Air Room Air Room Air 07/02/16 07/02/16 07/02/16 07/02/16 00:00 02:00 04:00 04:00 Temp 97.7 98.0 Pulse 82 82 84 84 Resp 10 15 B/P 130/59 138/63 Pulse Ox 91 94 07/02/16 07/02/16 07/02/16 07/02/16 06:00 08:00 08:00 10:00 Temp 98.3 Pulse 83 83 83 85 Resp 16 B/P 148/67 Pulse Ox 95 07/02/16 07/02/16 07/02/16 07/02/16 10:52 12:00 12:00 14:00 Temp 98.7 Pulse 84 84 88 Resp 16 B/P 163/67 Pulse Ox 96 95 O2 Delivery Nasal Cannula O2 Flow Rate 2.00 INTAKE & OUTPUT 07/02/16 07:00 Intake Total 5228 ml Output Total 4125 ml Balance 1103 ml Physical exam GENERAL: Elderly male resting comfortably in bed. NAD. SKIN: Warm and dry. Multiple ecchymoses over extremities HEAD: Normocephalic. AT EYES: No scleral icterus. No injection or drainage. Mild conjunctival pallor ENT: OP clear. MMM. NC in place NECK: Supple, trachea midline. No JVD or lymphadenopathy. CARDIOVASCULAR: Regular rate and rhythm without murmurs, gallops, or rubs. RESPIRATORY: Breath sounds equal and clear to auscultation bilaterally. No accessory muscle use. GASTROINTESTINAL: Abdomen soft, non-tender, nondistended. Normal active BS. Rectal tube in place draining watery, bloody diarrhea MUSCULOSKELETAL: No cyanosis, or edema. NO calf tenderness BACK: Nontender without obvious deformity. No CVA tenderness. NEURO: Awake and alert. Oriented. MAEW. CN grossly intact. Assessment Assessment 86yoM admitted with: GIB, suspect secondary to diverticulosis Acute blood loss anemia Hx CAD s/p CABG, follows with cardiology Dr. Bray Anxiety/Depression HTN HL PLAN PLAN Protonix GI consultation Hold asa, plavix Transfuse as needed serial Hgb Resume home meds as appropriate 2D echo SCDs Monitor intake/output Light IVF while NPO Patient seen and examined with the resident team. Case reviewed and discussed Agree with plan of care as discussed with me and documented in the resident note. Carmen Gant MD Jul 02, 2016 14:55
[2016-07-02] MEDS ORDERED: LORazepam 1 MG TAB PO PRN (15:00)
[2016-07-02 16:46] LABS: HEMATOCRIT 27.8 % (39.0-51.0); REVIEW FLAG FINAL
--- NOTE | 2016-07-02 20:45 | MR ---
cc: VILMA LEUNG DATE 07/02/16 PROCEDURE Upper gastrointestinal endoscopy and colonoscopy with biopsy. INDICATION An 86-year-old gentleman who has rectal bleeding and anemia. PROCEDURE After informing the patient about procedure and complications, consent was signed. The patient was placed on his left lateral decubitus. Adequate sedation was achieved by propofol. The scope was placed in the mouth, advanced under video guidance to the second portion of the duodenum. The scope drawn back to the stomach. Retroflexion was performed. Then the scope drawn back without immediate complication. After that rectal exam was performed. The scope was placed in the rectum, advanced under video guidance to the cecum which was identified by the ileocecal valve and appendiceal orifice. Terminal ileum was intubated, there was some erythema in the ileocecal valve and terminal ileum biopsy was done. Then the scope drawn back to the rectum. Retroflexion was performed, then the scope drawn back without immediate complication. FINDINGS 1. Normal upper endoscopy including esophagus, stomach and duodenum. 2. In the colon some erythema in the ileocecal valve and terminal ileum, biopsy was done. There was no sign of active bleeding. 3. Diverticulosis mostly on the left side. This could be the reason for the bleeding. 4. Small hemorrhoid. 5. No active bleeding at this time. RECOMMENDATIONS 1. May feed patient. 2. Will follow up CBC. 3. Follow-up biopsy. 4. After I went and talked to the family they told me that they were concerned about the patient's diarrhea, that he has explosive every day and at the same time they said that he is very concerned about having bowel movement every day and that he takes laxative and prune juice all the time and they would like him to have a psychological evaluation. I told them this needs to be discussed with the primary team and we will see what the biopsy shows. MD RUDOLPH Monique/BORIS /1:42 PM /8:38 PM
[2016-07-02] MEDS: PRAVASTATIN SOD 80 MG TAB PO SCH (21:00)
[2016-07-02] MEDS: TAMSULOSIN HCL 0.4 MG CAP PO SCH (21:00)
[2016-07-02] MEDS ORDERED: cloNIDine HCL 0.1 MG TAB PO PRN (22:00)
[2016-07-02 22:41] LABS: REVIEW FLAG FINAL
[2016-07-03] VITALS (8 sets, daily range): BP systolic 149–161; BP diastolic 70–75; PULSE 81–87; RESP 20–24; TEMP 98–98.5; O2SAT 92–96
[2016-07-03 03:04] LABS: AUTOMATED NEUTROPHIL # 4.6 TH/MM3 (1.8-7.7); BASOPHIL % 0.2 % (0.0-2.0); EOSINOPHIL # 0.1 TH/MM3 (0-0.4); EOSINOPHIL % 2.3 % (0.0-4.0); HEMATOCRIT 24.4 % (39.0-51.0); LYMPH % 18.2 % (9.0-44.0); LYMPHOCYTE # 1.2 TH/MM3 (1.0-4.8); MEAN CELL VOLUME 80.1 FL (80.0-100.0); MEAN CORPUSCULAR HEMOGLOBIN 25.8 PG (27.0-34.0); MEAN CORPUSCULAR HGB CONC 32.2 % (32.0-36.0); NEUT % 70.3 % (16.0-70.0); PLATELET COUNT 255 TH/MM3 (150-450); RED BLOOD COUNT 3.05 MIL/MM3 (4.50-5.90); RED CELL DISTRIBUTION WIDTH 18.1 % (11.6-17.2); WHITE BLOOD COUNT 6.6 TH/MM3 (4.0-11.0)
[2016-07-03 03:08] LABS: HEMO FLAGS AUTO DIFF
[2016-07-03 03:17] LABS: ALT (GPT) 11 U/L (12-78); ANION GAP 7 MEQ/L (5-15); AST (GOT) 11 U/L (15-37); BLOOD UREA NITROGEN 14 MG/DL (7-18); CHLORIDE 114 MEQ/L (98-107); GLOMERULAR FILTRATION RATE 115 ML/MIN (>89); POTASSIUM 3.8 MEQ/L (3.5-5.1); SODIUM (NA) 143 MEQ/L (136-145)
[2016-07-03 03:20] LABS: ALKALINE PHOSPHATASE 41 U/L (45-117); TOTAL BILIRUBIN ADULT 0.3 MG/DL (0.2-1.0)
[2016-07-03 03:37] LABS: BANDS 8 % (0-6); CORRECTED NUCLEATED RBC 1 /100 WBC (0-0); EOSINOPHILS 1 % (0-4); METAMYELOCYTES 1 % (0-1); MYELOCYTES 5 % (0-0); NEUTROPHIL # MANUAL DIFF 5.2 TH/MM3 (1.8-7.7); POLYS (SEG NEUTROPHILS) 65 % (16-70); WBC DIFF SAMPLE 100
[2016-07-03 03:38] LABS: PLATELET ESTIMATE SMEAR NORMAL (NORMAL); PLATELET MORPHOLOGY NORMAL (NORMAL); SCAN/DIFF FINAL DIFF MANUAL
[2016-07-03 03:44] LABS: ACANTHOCYTES OCC (NORMAL); KERATOCYTES OCC (NORMAL)
[2016-07-03] MEDS: CHLORHEXIDINE GLUCONATE 2 % 1 PACK (2 CLOTHS)(taper/protocol) TOP SCH (04:00)
[2016-07-03] MEDS ORDERED: FUROSEMIDE 20 MG/2 ML VIAL IV ONE (07:15)
[2016-07-03] MEDS ORDERED: SODIUM CHLOR 0.9% 250 ML INJ 250 ML IV ONE (07:15)
[2016-07-03] MEDS ORDERED: FUROSEMIDE 20 MG/2 ML VIAL IV SCH (07:30)
[2016-07-03] MEDS ORDERED: ACETAMINOPHEN 325 MG TAB PO PRN (08:00)
[2016-07-03] MEDS: ESCITALOPRAM OXALATE 10 MG TAB PO SCH (08:24)
[2016-07-03] MEDS: LISINOPRIL 5 MG TAB PO SCH (08:25)
[2016-07-03] MEDS: FINASTERIDE 5 MG TAB PO SCH (08:25)
[2016-07-03] MEDS: POTASSIUM CHLORIDE 10 MEQ CONTROLLED RELEASE TAB PO SCH (08:25)
[2016-07-03] MEDS: PARoxetine HCL 20 MG TAB PO SCH (08:25)
[2016-07-03] MEDS: FUROSEMIDE 20 MG TAB PO SCH (08:25)
--- NOTE | 2016-07-03 09:31 | HHI.FPPN ---
Subjective Remarks Patient has no more bleeding per rectum. He will like to go home. No bowel movements today. No nausea vomiting, chest pain, fever, chills. Patient understands where he is at and what operations were performed. He understands he has diverticulosis. (Lavon Brennan MD R2) Objective Vitals Vital Signs Date Time Temp Pulse Resp B/P Pulse Ox O2 Delivery O2 Flow Rate FiO2 07/03/16 08:00 98.3 84 20 161/74 96 07/03/16 08:00 87 07/03/16 06:00 85 07/03/16 04:00 98.1 81 24 158/75 95 07/03/16 04:00 81 07/03/16 02:00 82 07/03/16 00:00 83 07/03/16 00:00 98.0 83 22 149/72 92 07/02/16 22:00 83 07/02/16 20:00 81 07/02/16 20:00 98.4 81 20 156/74 92 07/02/16 18:00 86 07/02/16 16:00 98.1 84 17 157/73 92 07/02/16 16:00 84 07/02/16 14:00 88 07/02/16 12:00 84 07/02/16 12:00 98.7 84 16 163/67 95 07/02/16 10:52 96 Nasal Cannula 2.00 07/02/16 10:00 85 I/O 07/02/16 07/02/16 07/02/16 07/03/16 07/03/16 07/03/16 07:00 15:00 23:00 07:00 15:00 23:00 Intake Total 5228 ml 1010 ml 1190 ml 354 ml Output Total 3475 ml 1050 ml 650 ml 450 ml Balance 1753 ml -40 ml 540 ml -96 ml Intake Oral 4000 ml 240 ml 50 ml IV Total 1228 ml 1010 ml 950 ml 304 ml Output Urine Total 475 ml 850 ml 650 ml 450 ml Stool Total 3000 ml 200 ml # Bowel Movements 0 0 (Lavon Brennan MD R2) Result Diagram: 07/03/16 0250 07/03/16 0250 Imaging Last Impressions Abdomen/Pelvis CT 07/01/16 0000 Signed Impressions: Service Date/Time: Friday, July 01, 2016 17:36 - CONCLUSION: 1. Diverticulosis without diverticulitis. Ar Vizcaino MD Objective Remarks GENERAL: Elderly male resting comfortably in bed. NAD. SKIN: Warm and dry. Multiple ecchymoses over extremities HEAD: Normocephalic. AT EYES: No scleral icterus. No injection or drainage. Mild conjunctival pallor ENT: OP clear. MMM. NECK: Supple, trachea midline. No JVD or lymphadenopathy. CARDIOVASCULAR: Regular rate and rhythm without murmurs, gallops, or rubs. RESPIRATORY: Breath sounds equal and clear to auscultation bilaterally. No accessory muscle use. GASTROINTESTINAL: Abdomen soft, non-tender, nondistended. Normal active BS. MUSCULOSKELETAL: No cyanosis, or edema. NO calf tenderness BACK: Nontender without obvious deformity. No CVA tenderness. NEURO: Awake and alert. Oriented 3. MAEW. CN grossly intact. (Lavon Brennan MD R2) A/P Assessment and Plan 86-year-old male admitted with bright red blood per rectum. EGD and colonoscopy performed 07/02. Discharge Planning Likely today (Lavon Brennan MD R2) Attending Attestation Patient seen and examined. Case reviewed and discussed Agree with plan of care as discussed with me and documented in the resident note (Carmen Gant MD) Problem List: (1) Lower gastrointestinal bleed Status: Acute Plan: Bright red blood per rectum. Vitals currently stable. Diverticulosis on CT scan and on colonoscopy. Gastroenterology consult Holding aspirin and Plavix EGD normal Colonoscopy shows diverticulosis and erythema in the terminal ileum. A biopsy was taken from the terminal ileum. Biopsy results pending. 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 (2) FEN/PPX Status: Acute Plan: Fluids: Tolerating by mouth Electrolytes: Monitor and replace when necessary Nutrition: Regular diet Prophylaxis: Bilateral SCDs Chronic medical problems: Coronary artery disease: Holding aspirin and Plavix secondary to GI bleed; continue Lasix 20 mg by mouth daily Depression: Continue Lexapro and paroxetine High blood pressure: Continue lisinopril Anxiety: Continue lorazepam 2 mg by mouth at bedtime when necessary anxiety and/ or insomnia BPH: Continue Flomax and finasteride Chronic pain: Continue tramadol (Lavon Brennan MD R2) Lavon Brennan MD R2 Jul 03, 2016 09:31 Carmen Gant MD Jul 04, 2016 14:52
[2016-07-03 11:50] LABS: HEMATOCRIT 29.8 % (39.0-51.0)
--- NOTE | 2016-07-03 14:33 | HHI.DCPOC ---
Discharge Care Plan Diagnosis: (1) Lower gastrointestinal bleed Goals to Promote Your Health * To prevent worsening of your condition and complications * To maintain your health at the optimal level Directions to Meet Your Goals Take your medications as prescribed Follow your dietary instruction Follow activity as directed Keep your appointments as scheduled Take your immunizations and boosters as scheduled If your symptoms worsen call your PCP, if no PCP go to Urgent Care Center or Emergency Room Smoking is Dangerous to Your Health. Avoid second hand smoke Call the 24-hour hour crisis hotline for domestic abuse at Lavon Brennan MD R2 Jul 03, 2016 14:33
--- NOTE | 2016-07-08 15:49 | HHI.DS ---
Discharge Summary Admission Date Jul 01, 2016 at 17:49 Admitting Diagnosis GI bleed (1) Lower gastrointestinal bleed Diagnosis: Principal Brief History 86-year-old male with history of bright red bleeding per rectum since this morning. Patient is present with his . He states for the past 2-3 days he has had "explosive diarrhea." He is not sure how many times he has gone to the bathroom in the last 2-3 days. The bright red bleeding first occurred this morning. He "passed a lot of blood which created a puddle on the floor." He called his primary care physician Dr. Garcia who recommended he come to the emergency room with any more episodes of bleeding. Shortly after, he fainted and there was "a gush of blood"per rectum. That is when his called 911. Patient was interviewed with tandem mill sticker in the room. CT exam showed diverticulosis. His last colonoscopy was 10 years ago. He took his medications this morning including Plavix and aspirin which he takes for coronary artery disease. PE at Discharge GENERAL: Elderly male resting comfortably in bed. NAD. SKIN: Warm and dry. Multiple ecchymoses over extremities HEAD: Normocephalic. AT EYES: No scleral icterus. No injection or drainage. Mild conjunctival pallor ENT: OP clear. MMM. NECK: Supple, trachea midline. No JVD or lymphadenopathy. CARDIOVASCULAR: Regular rate and rhythm without murmurs, gallops, or rubs. RESPIRATORY: Breath sounds equal and clear to auscultation bilaterally. No accessory muscle use. GASTROINTESTINAL: Abdomen soft, non-tender, nondistended. Normal active BS. MUSCULOSKELETAL: No cyanosis, or edema. NO calf tenderness BACK: Nontender without obvious deformity. No CVA tenderness. NEURO: Awake and alert. Oriented 3. MAEW. CN grossly intact. Hospital Course Mr. Calles was admitted with bright red blood per rectum. EGD and colonoscopy were performed on the day following admission. The colonoscopy showed diverticulosis and erythema in the terminal ileum. Biopsy was taken and sent to pathology. The patient did not have any further bleeding episodes after colonoscopy. His hemoglobin and hematocrit improved and stabilized during admission. He was discharged home in stable condition to follow-up with PCP in one week and GI in 2 weeks. Pt Condition on Discharge: Stable Discharge Disposition: Discharge Home Discharge Instructions DIET: Follow Instructions for: As Tolerated, No Restrictions Activities you can perform: Regular-No Restrictions Follow up Referrals: Appointment for Follow Up - 1 Week Gastroenterology - 2 Weeks with Aditya Enrique MD New Orders: CBC NO DIFF - 2 Days Continued Medications: Ascorbic Acid (Vitamin C) 500 Mg Cap 500 MG PO BID Nutritional Supplement Ref 0 CAP Aspirin (Aspirin) 325 Mg Tab 325 MG PO DAILY #30 Ref 0 TAB Clopidogrel (Plavix) 75 Mg Tab Unknown Dose PO DAILY Blood Clot Prevention #30 Ref 0 TAB Escitalopram (Lexapro) 10 Mg Tab 10 MG PO DAILY #30 Ref 0 TAB Finasteride (Finasteride) 5 Mg Tab 5 MG PO DAILY Do not crush. Manage Prostate Problems #30 Ref 0 TAB Furosemide (Lasix) 20 Mg Tab 0.5 TAB PO DAILY #60 Ref 0 TAB Lisinopril (Lisinopril) 5 Mg Tab 5 MG PO DAILY Blood Pressure Management #30 Ref 0 TAB Lorazepam (Lorazepam) 2 Mg Tab 2 MG PO HS PRN ANXIETY AND/OR INSOMNIA Ref 0 TAB Omeprazole (Prilosec) 20 Mg Cap 20 MG PO DAILY #30 Ref 0 CAP Paroxetine (Paroxetine) 20 Mg Tab 20 MG PO DAILY #30 Ref 0 TAB Potassium Chloride ER (Klor-Con 10) 10 Meq Tab 20 MEQ PO DAILY Electrolyte Replacement #30 Ref 0 TAB Simvastatin (Simvastatin) 40 Mg Tab 40 MG PO HS Cholesterol Management #30 Ref 0 TAB Tamsulosin (Flomax) 0.4 Mg Cap 0.4 MG PO HS Manage Prostate Problems #30 Ref 0 CAP Tramadol (Tramadol) 50 Mg Tab 50 MG PO DAILY PRN PAIN Ref 0 TAB Marbella David MD R1 Jul 08, 2016 15:49
== END 2016-07-03 15:58 | disposition home or self-care (01) | DRG 378 ==
LOC: NEPA 15:51 → NEDA 17:49 → HIMW 22:55
PROVIDERS: ADMIT Family Medicine; ATTEND Family Medicine
PROC: 0DJ08ZZ Inspection of Upper Intestinal Tract, Via Natural or Artificial Opening Endoscopic (ICD-10-PCS; principal; 2016-07-02 11:50)
PROC: 0DBC8ZX Excision of Ileocecal Valve, Via Natural or Artificial Opening Endoscopic, Diagnostic (ICD-10-PCS; 2016-07-02 11:50)
DX: K92.2 Gastrointestinal hemorrhage, unspecified (principal); D62 Acute posthemorrhagic anemia; I25.10 Atherosclerotic heart disease of native coronary artery without angina pectoris; Z95.1 Presence of aortocoronary bypass graft; K57.90 Diverticulosis of intestine, part unspecified, without perforation or abscess without bleeding; I10 Essential (primary) hypertension; Z95.0 Presence of cardiac pacemaker; Z79.02 Long term (current) use of antithrombotics/antiplatelets; Z79.82 Long term (current) use of aspirin; E78.5 Hyperlipidemia, unspecified; N40.0 Benign prostatic hyperplasia without lower urinary tract symptoms; Z87.891 Personal history of nicotine dependence; F32.9 Major depressive disorder, single episode, unspecified; F41.9 Anxiety disorder, unspecified; G89.29 Other chronic pain; Z86.73 Personal history of transient ischemic attack (TIA), and cerebral infarction without residual deficits; G47.00 Insomnia, unspecified
CPT/HCPCS: 74177; 80053; 83690; 85007; 85014; 85018; 85025; 85027; 85610; 85730; 86850; 86900; 86901; 86920; 87641; 88305; 93005; 96365; C9113; J7030; J7040; Q9967

== ENCOUNTER 2017-06-26 13:27 | Emergency (ER) | payer MEDICARE, BC ==
[~2017-06-26] VITALS: Ht 170.2 cm; Wt 84.0 kg
[~2017-06-26 13:27] MED LIST changes: +ASCO500C PO; +ASPI-183 PO; -ECASA PO; +FINA5TAB2 PO; -FINA5TAB77 PO; +FURO1TAB62 PO; +KLOR10TA PO; -LASI20TA PO; -LISI-357 PO; +LISI-519 PO; -LORA2TAB PO; +LORA2TAB7 PO; -OMPR20CCR PO; +PARO20TA3 PO; -PAXI20TA26 PO; -PLAV75TA PO; +PLAV75TA29 PO; -POTA-243 PO; +PRIL20CA9 PO; -SIMV40 PO; +SIMV40TA PO; -TAMS0.4C67 PO; +TAMS5CAP PO; +TRAM50TA PO; -ULTR50TA PO; -VITA-83 PO
[2017-06-26 13:36] VITALS: BP 107/58; PULSE 88; RESP 18; TEMP 97.6; O2SAT 96
[2017-06-26] MEDS ORDERED: FURO1TAB62 PO (13:54)
[2017-06-26] MEDS ORDERED: ARIC23TA PO (13:54)
[2017-06-26] MEDS ORDERED: PRIL20TA2 PO (13:54)
[2017-06-26] MEDS ORDERED: ASCO500T PO (13:54)
[2017-06-26] MEDS ORDERED: SODIUM CHLORIDE 0.9% FLUSH 10 ML FLUSH IVF PRN (14:00)
--- NOTE | 2017-06-26 14:00 | PD ---
HPI Chief Complaint: Fall Time Seen by Provider: 13:55 Travel History International Travel<30 days: No Contact w/Intl Traveler<30days: No Traveled to known affect area: No History of Present Illness HPI 87-year-old male patient with history of CAD status post CABG, pacemaker, hypertension, previous TIA, presents to the ER today brought in by his because he states that he was walking his dog today and got nauseous, felt to his knees, and hit the back of his head. He denies loss of consciousness. He was able to get up on his own, went home and vomited one time in the bathroom. He denies any diarrhea, abdominal pains, chest pains, shortness of breath, fevers, or any other symptoms. He states that his doctor has started him on Aricept yesterday. Modifying Factors: None Associated Signs & Symptoms: Nausea, fall, head injury Risk Factors: Elderly PFSH Past Medical History Hx Anticoagulant Therapy: Yes Arthritis: No Anxiety: Yes Depression: Yes Heart Rhythm Problems: Yes Cancer: No Cardiac Catheterization: Yes Cardiovascular Problems: Yes High Cholesterol: Yes Chest Pain: Yes Congestive Heart Failure: Yes Cerebrovascular Accident: Yes (TIA X2) Coronary Artery Disease: Yes Diabetes: No Diminished Hearing: No Endocrine: No Gastrointestinal Disorders: No Glaucoma: No Genitourinary: Yes Hepatitis: No Hiatal Hernia: No Hypertension: Yes Immune Disorder: No Implanted Vascular Access Dvce: Yes (PACEMAKER) Kidney Stones: Yes Musculoskeletal: Yes (CARPAL TUNNEL) Neurologic: Yes Psychiatric: Yes Reproductive: No Respiratory: No Integumentary: Yes (GANGLION L WRIST) Seizures: Yes Thyroid Disease: No Past Surgical History Abdominal Surgery: Yes AICD: No Appendectomy: Yes Arteriovenous Shunt: No Cardiac Surgery: Yes (PACEMAKER, QUADRUPAL BYPASS) Coronary Artery Bypass Graft: Yes (X 4) Ear Surgery: No Endocrine Surgery: No Eye Surgery: Yes (ERLIN. CATARACT EXTRACT.) Genitourinary Surgery: Yes Insulin Pump: No Joint Replacement: No Neurologic Surgery: Yes (L WRIST GANGLION) Oral Surgery: No Pacemaker: Yes (BIOTRONIK) Thoracic Surgery: No Other Surgery: Yes (hemriodectomy and ganglion cyst removal) Social History Alcohol Use: Yes (OCCASIONALLY) Tobacco Use: No Substance Use: No Allergies-Medications (Allergen,Severity, Reaction): Coded Allergies: ibuprofen (Unverified Allergy, Severe, 06/26/17) tramadol (Unverified Adverse Reaction, Severe, Seizures, 06/26/17) Reported Meds & Prescriptions Reported Meds & Active Scripts Active Reported Ascorbic Acid 500 Mg Tab 500 Mg PO BID Lasix (Furosemide) 20 Mg Tab 10 Mg PO DAILY Prilosec (Omeprazole Magnesium) 20 Mg Tab 1 Tab PO DAILY Aricept (Donepezil) 23 Mg Tab Unknown Dose PO HS Do not split, crushed or chewed. Plavix (Clopidogrel Bisulfate) 75 Mg Tab Unknown Dose PO DAILY Paroxetine (Paroxetine HCl) 20 Mg Tab 20 Mg PO DAILY Flomax (Tamsulosin HCl) 0.4 Mg Cap 0.4 Mg PO HS Tramadol (Tramadol HCl) 50 Mg Tab 50 Mg PO DAILY PRN Lisinopril 5 Mg Tab 5 Mg PO DAILY Lexapro (Escitalopram Oxalate) 10 Mg Tab 10 Mg PO DAILY Aspirin 325 Mg Tab 325 Mg PO DAILY Lorazepam 2 Mg Tab 2 Mg PO HS PRN Simvastatin 40 Mg Tab 40 Mg PO HS Finasteride 5 Mg Tab 5 Mg PO DAILY Do not crush. Klor-Con 10 (Potassium Chloride) 10 Meq Tab 20 Meq PO DAILY Review of Systems Except as stated in HPI: all other systems reviewed are Neg Physical Exam Narrative GENERAL: Well-developed elderly male patient currently in no acute distress. Awake and oriented 3. There is a small SKIN: Focused skin assessment warm/dry. HEAD: Contusion to the posterior scalp. Normocephalic. EYES: Pupils equal and round. No scleral icterus. No injection or drainage. ENT: No nasal bleeding or discharge. Mucous membranes pink and moist. NECK: Trachea midline. No JVD. Supple. CARDIOVASCULAR: Regular rate and rhythm. No murmur appreciated. RESPIRATORY: No accessory muscle use. Clear to auscultation. Breath sounds equal bilaterally. GASTROINTESTINAL: Abdomen soft, non-tender, nondistended. Hepatic and splenic margins not palpable. MUSCULOSKELETAL: No obvious deformities. No clubbing. No cyanosis. No edema. EXTREMITIES: No clubbing, cyanosis, or edema. No joint tenderness, effusion, or edema noted. Abrasions over both knees with no bony tenderness, nontender range of motion, not significantly tender to palpation. NEUROLOGICAL: Awake and alert. No obvious cranial nerve deficits. Motor grossly within normal limits. Normal speech. PSYCHIATRIC: Appropriate mood and affect; insight and judgment normal. Data Data Last Documented VS Vital Signs Date Time Temp Pulse Resp B/P (MAP) Pulse Ox O2 Delivery O2 Flow Rate FiO2 06/26/17 16:13 77 20 146/70 (95) 93 06/26/17 13:[address] Brain W/O Iv Contrast(Rout) (06/26/17 13:51) Electrocardiogram (06/26/17 13:55) Complete Blood Count With Diff (06/26/17 13:55) Comprehensive Metabolic Panel (06/26/17 13:55) Troponin I (06/26/17 13:55) Act Partial Throm Time (Ptt) (06/26/17 13:55) Prothrombin Time / Inr (Pt) (06/26/17 13:55) Urinalysis - C+S If Indicated (06/26/17 13:55) Ecg Monitoring (06/26/17 13:55) Iv Access Insert/Monitor (06/26/17 13:55) Oximetry (06/26/17 13:55) Sodium Chloride 0.9% Flush (Ns Flush) (06/26/17 14:00) Sodium Chlorid 0.9% 500 Ml Inj (Ns 500 M (06/26/17 15:15) Urine Culture (06/26/17 15:10) Sulfamet-Trimeth Ds 800-160 Mg (Bactrim (06/26/17 16:45) Ed Discharge Order (06/26/17 16:32) Labs Laboratory Tests Test 06/26/17 14:00 06/26/17 15:10 White Blood Count 13.0 TH/MM3 Red Blood Count 5.15 MIL/MM3 Hemoglobin 14.8 GM/DL Hematocrit 44.2 % Mean Corpuscular Volume 86.0 FL Mean Corpuscular Hemoglobin 28.7 PG Mean Corpuscular Hemoglobin Concent 33.4 % Red Cell Distribution Width 14.2 % Platelet Count 248 TH/MM3 Mean Platelet Volume 8.9 FL Neutrophils (%) (Auto) 89.2 % Lymphocytes (%) (Auto) 3.7 % Monocytes (%) (Auto) 4.9 % Eosinophils (%) (Auto) 0.2 % Basophils (%) (Auto) 2.0 % Neutrophils # (Auto) 11.6 TH/MM3 Lymphocytes # (Auto) 0.5 TH/MM3 Monocytes # (Auto) 0.6 TH/MM3 Eosinophils # (Auto) 0.0 TH/MM3 Basophils # (Auto) 0.3 TH/MM3 CBC Comment DIFF FINAL Differential Comment Prothrombin Time 10.8 SEC Prothromb Time International Ratio 1.1 RATIO Activated Partial Thromboplast Time 21.7 SEC Blood Urea Nitrogen 31 MG/DL Creatinine 1.70 MG/DL Random Glucose 122 MG/DL Total Protein 7.3 GM/DL Albumin 3.9 GM/DL Calcium Level 9.1 MG/DL Alkaline Phosphatase 57 U/L Aspartate Amino Transf (AST/SGOT) 28 U/L Alanine Aminotransferase (ALT/SGPT) 25 U/L Total Bilirubin 0.6 MG/DL Sodium Level 137 MEQ/L Potassium Level 4.3 MEQ/L Chloride Level 106 MEQ/L Carbon Dioxide Level 19.6 MEQ/L Anion Gap 11 MEQ/L Estimat Glomerular Filtration Rate 38 ML/MIN Troponin I 0.04 NG/ML Urine Color BROWN Urine Turbidity CLOUDY Urine pH 6.0 Urine Specific [place] 1.022 Urine Protein 100 mg/dL Urine Glucose (UA) NEG mg/dL Urine Ketones 15 mg/dL Urine Occult Blood LARGE Urine Nitrite NEG Urine Bilirubin NEG Urine Leukocyte Esterase SMALL Urine RBC 25-49 /hpf Urine WBC 20-24 /hpf Urine Squamous Epithelial Cells 6-8 /hpf Urine Renal Epithelial Cells 0-5 /hpf Urine Amorphous Sediment MOD Urine Bacteria FEW /hpf Urine Fine Granular Casts 0-2 /lpf Urine White Blood Cell Casts 3-5 /lpf Urine Mucus FEW /lpf Microscopic Urinalysis Comment CULTURE INDICATED MDM Medical Decision Making Medical Screen Exam Complete: Yes Emergency Medical Condition: Yes Medical Record Reviewed: Yes Interpretation(s) EKG shows a paced rhythm at a rate of 75 bpm. Laboratory Tests Test 06/26/17 14:00 06/26/17 15:10 White Blood Count 13.0 TH/MM3 (4.0-11.0) Neutrophils (%) (Auto) 89.2 % (16.0-70.0) Lymphocytes (%) (Auto) 3.7 % (9.0-44.0) Neutrophils # (Auto) 11.6 TH/MM3 (1.8-7.7) Lymphocytes # (Auto) 0.5 TH/MM3 (1.0-4.8) Basophils # (Auto) 0.3 TH/MM3 (0-0.2) Activated Partial Thromboplast Time 21.7 SEC (24.3-30.1) Blood Urea Nitrogen 31 MG/DL (7-18) Creatinine 1.70 MG/DL (0.60-1.30) Random Glucose 122 MG/DL (74-106) Carbon Dioxide Level 19.6 MEQ/L (21.0-32.0) Estimat Glomerular Filtration Rate 38 ML/MIN (>89) Urine Color BROWN (YELLW/STRAW) Urine Turbidity CLOUDY (CLEAR) Urine Protein 100 mg/dL (NEG-TRACE) Urine Ketones 15 mg/dL (NEG) Urine Occult Blood LARGE (NEG) Urine Leukocyte Esterase SMALL (NEG) Urine RBC 25-49 /hpf (0-3) Urine WBC 20-24 /hpf (0-5) Urine Squamous Epithelial Cells 6-8 /hpf (0-5) Urine Bacteria FEW /hpf (NONE) Urine Mucus FEW /lpf (OCC) Last [address] 06/26/17 1351 Signed Impressions: Service Date/Time: Monday, June 26, 2017 14:45 - CONCLUSION: Stable brain appearance with no acute findings Octavio Contreras MD Differential Diagnosis Knee contusion, head injury: Rule out intracranial injuries Narrative Course CT the brain did not show any signs of acute injuries. Abdomen is fairly benign. Vital signs are stable in the ER. Lab work does show some leukocytosis and the patient has a UTI. At this point, my plan would be to treat the UTI. He is walking around in the ER without issues, states that he feels well, wants to go home. At this point, my plan would be to release him with treatment for UTI. Follow-up with primary care doctor. Return for any worsening of symptoms as needed. The plan has been discussed with him and he states understanding. Diagnosis Primary Impression: Frequent falls Additional Impressions: UTI (urinary tract infection) Scalp contusion Med/Other Pt SpecificInfo: Prescription(s) given Scripts Ondansetron Odt (Zofran Odt) 4 Mg Tab 4 MG SL Q6HR Y for Nausea/Vomiting, #7 TAB 0 Refills Prov: Kena Alexis MD 06/26/17 Sulfamethoxazole-Trimethoprim (Bactrim DS) 800-160 Mg Tab 1 TAB PO BID for Infection, #14 TAB 0 Refills Prov: Kena Alexis MD 06/26/17 Disposition: 01 DISCHARGE HOME Condition: Stable Kena Alexis MD Jun 26, 2017 14:00
[2017-06-26 14:12] VITALS: O2SAT 96
[2017-06-26 14:27] LABS: AUTOMATED NEUTROPHIL # 11.6 TH/MM3 (1.8-7.7); BASOPHIL # 0.3 TH/MM3 (0-0.2); EOSINOPHIL % 0.2 % (0.0-4.0); HEMATOCRIT 44.2 % (39.0-51.0); HEMOGLOBIN 14.8 GM/DL (13.0-17.0); LYMPH % 3.7 % (9.0-44.0); LYMPHOCYTE # 0.5 TH/MM3 (1.0-4.8); MEAN CORPUSCULAR HEMOGLOBIN 28.7 PG (27.0-34.0); MEAN CORPUSCULAR HGB CONC 33.4 % (32.0-36.0); MEAN PLATELET VOLUME 8.9 FL (7.0-11.0); MONO % 4.9 % (0.0-8.0); MONOCYTE # 0.6 TH/MM3 (0-0.9); NEUT % 89.2 % (16.0-70.0); PLATELET COUNT 248 TH/MM3 (150-450); RED BLOOD COUNT 5.15 MIL/MM3 (4.50-5.90); RED CELL DISTRIBUTION WIDTH 14.2 % (11.6-17.2)
[2017-06-26 14:37] LABS: CHLORIDE 106 MEQ/L (98-107); SODIUM (NA) 137 MEQ/L (136-145)
[2017-06-26 14:40] LABS: CALCIUM 9.1 MG/DL (8.5-10.1)
[2017-06-26 14:41] LABS: ALBUMIN 3.9 GM/DL (3.4-5.0); BICARBONATE 19.6 MEQ/L (21.0-32.0); BLOOD UREA NITROGEN 31 MG/DL (7-18); GLUCOSE,RANDOM 122 MG/DL (74-106)
[2017-06-26 14:44] LABS: ALT (GPT) 25 U/L (12-78); AST (GOT) 28 U/L (15-37); GLOMERULAR FILTRATION RATE 38 ML/MIN (>89)
[2017-06-26 14:45] LABS: TOTAL BILIRUBIN ADULT 0.6 MG/DL (0.2-1.0); TOTAL PROTEIN 7.3 GM/DL (6.4-8.2)
[2017-06-26 14:47] LABS: ALKALINE PHOSPHATASE 57 U/L (45-117)
[2017-06-26 14:49] LABS: TROPONIN I 0.04 NG/ML (0.02-0.05)
--- NOTE | 2017-06-26 14:56 | RADRPT ---
EXAM DATE/TIME: 06/26/2017 14:45 [facility] COMPARISON: CT BRAIN W/O CONTRAST, December 11, 2015, 17:33. INDICATIONS : Trauma. Fall. Hit head. RADIATION DOSE: 60.33 CTDIvol (mGy) MEDICAL HISTORY : Cerebrovascular disease. Congestive heart failure. Renal calculi.Hypertension. SURGICAL HISTORY : Pacemaker. CABGAppendectomy. ENCOUNTER: Initial ACUITY: 1 day PAIN SCALE: 4/10 LOCATION: cranial TECHNIQUE: Multiple contiguous axial images were obtained of the head. Using automated exposure control and adj ustment of the mA and/or kV according to patient size, radiation dose was kept as low as reasonably a chievable to obtain optimal diagnostic quality images. DICOM format image data is available electro nically for review and comparison. FINDINGS: CEREBRUM: The ventricles are normal for age. No evidence of midline shift, mass lesion, hemorrhage or acute in farction. No extra-axial fluid collections are seen. POSTERIOR FOSSA: The cerebellum and brainstem are intact. The 4th ventricle is midline. The cerebellopontine angle i s unremarkable. EXTRACRANIAL: The visualized portion of the orbits is intact. SKULL: The calvaria is intact. No evidence of skull fracture. CONCLUSION: Stable brain appearance with no acute findings Octavio Contreras MD on June 26, 2017 at 14:52 Board Certified Radiologist. This report was verified electronically.
[2017-06-26 15:01] VITALS: BP 117/65; PULSE 78; RESP 20; O2SAT 97
[2017-06-26] MEDS ORDERED: SODIUM CHLORID 0.9% 500 ML INJ 500 ML IV ONE (15:15)
[2017-06-26 15:24] LABS: INTERNATIONAL NORMALIZED RATIO 1.1 RATIO; PROTHROMBIN TIME - PATIENT 10.8 SEC (9.8-11.6)
[2017-06-26 15:46] LABS: BILIRUBIN, URINE NEG (NEG); BLOOD, URINE LARGE (NEG); GLUCOSE,URINE NEG (NEG); KETONE, URINE 15 mg/dL (NEG); NITRITE,URINE NEG (NEG); URINE LEUKOCYTE ESTERASE SMALL (NEG)
[2017-06-26 16:13] VITALS: BP 146/70; PULSE 77; RESP 20; O2SAT 93
[2017-06-26 16:18] LABS: URINE COLOR BROWN (YELLW/STRAW)
[2017-06-26 16:19] LABS: AMORPHOUS SEDIMENT, URINE MOD; BACTERIA, URINE FEW /hpf; MUCUS URINE FEW /lpf (OCC); RENAL EPITHELIAL CELLS 0-5 /hpf
[2017-06-26] MEDS ORDERED: ZOFR4TAB3 SL (16:36)
[2017-06-26] MEDS ORDERED: BACT800T5 PO (16:36)
[2017-06-26] MEDS ORDERED: SULFAMETHOXAZOLE-TRIMETHOPRIM DS 800-160 MG TAB PO ONE (16:45)
--- NOTE | 2017-06-27 15:46 | EKG ---
Date Performed: 06/26/2017 Time Performed: 14:09:47 PTAGE: 87 years EKG: ELECTRONIC VENTRICULAR PACEMAKER ABNORMAL RHYTHM ECG PREVIOUS TRACING : 07/01/2016 15.56 DOCTOR: Mateo Prasad Interpretating Date/Time 06/27/2017 15:45:51
== END 2017-06-26 17:13 | disposition home or self-care (01) ==
LOC: PHED 13:27
DX: N39.0 Urinary tract infection, site not specified (principal); S00.03XA Contusion of scalp, initial encounter; R94.31 Abnormal electrocardiogram [ECG] [EKG]; W18.39XA Other fall on same level, initial encounter; Z91.81 History of falling; Y93.K1 Activity, walking an animal; I25.10 Atherosclerotic heart disease of native coronary artery without angina pectoris; I10 Essential (primary) hypertension; I50.9 Heart failure, unspecified; F41.8 Other specified anxiety disorders; E78.00 Pure hypercholesterolemia, unspecified; Z79.01 Long term (current) use of anticoagulants; Z86.79 Personal history of other diseases of the circulatory system; Z86.73 Personal history of transient ischemic attack (TIA), and cerebral infarction without residual deficits; Z87.448 Personal history of other diseases of urinary system; Z86.69 Personal history of other diseases of the nervous system and sense organs
CPT/HCPCS: 70450; 80053; 81001; 84484; 85025; 85610; 85730; 87086; 93005; 96360; 99285; J7040